=== PATIENT | male | born 1970 | race Caucasian/White ===

== ENCOUNTER 2016-11-03 18:21 | Inpatient (IN) | payer MEDICAID, OTHER ==
[~2016-11-03] VITALS: Ht 172.7 cm; Wt 94.1 kg
[2016-11-03 19:14] LABS: BASOPHILS % (AUTO) 0.4 % (0.0-2.0); EOSINOPHILS % (AUTO) 0.7 % (1.0-6.0); HEMATOCRIT 50.5 % (41-53); HEMOGLOBIN 16.3 g/dL (13.5-17.5); LYMPHOCYTES # (AUTO) 2.9 K/uL (1.0-4.8); LYMPHOCYTES % (AUTO) 38.4 % (22.0-44.0); MEAN CORPUSCULAR HEMOGLOBIN 29.3 pg (26.0-34.0); MEAN CORPUSCULAR HGB CONC 32.2 G/dL (31.0-37.0); MEAN CORPUSCULAR VOLUME 91 fL (80-100); MONOCYTES # (AUTO) 0.6 K/uL (0.1-1.0); MONOCYTES % (AUTO) 7.4 % (2.0-9.0); NEUTROPHILS % (AUTO) 53.1 % (40.0-70.0); PLATELET COUNT (AUTO) 179 K/uL (150-450); RED BLOOD CELL COUNT(AUTO) 5.56 MIL/uL (4.50-5.90); RED CELL DISTRIBUTION WIDTH 13.3 % (11.5-14.5); WHITE BLOOD COUNT (AUTO) 7.5 K/uL (4.5-11.0)
[2016-11-03 19:29] LABS: ANION GAP 7 mmol/L (8-16); CALCIUM, TOTAL 9.4 mg/dL (8.8-10.5); CARBON DIOXIDE 33 mmol/L (22-29); CHLORIDE 98 mmol/L (98-107); CREATININE 1.16 mg/dL (0.60-1.30); GLOMERULAR FILTR. RATE CALC > 60 mL/min (>60); POTASSIUM 3.7 mmol/L (3.5-5.1); SODIUM SERUM 138 mmol/L (136-145); UREA NITROGEN, BLOOD 14 mg/dL (7-18)
[2016-11-03 19:34] LABS: ALANINE AMINOTRANSFERASE 115 U/L (12-78); ALBUMIN 4.3 g/dL (3.4-5.0); ASPARTATE AMINOTRANSFERASE 43 U/L (15-37); BILIRUBIN,TOTAL 0.7 mg/dL (0.1-1.0); TOTAL PROTEIN, SERUM 8.4 g/dL (6.4-8.2)
[2016-11-03] MEDS ORDERED: ZOLPIDEM TARTRATE 10 MG TABLET PO PRN (20:30)
[2016-11-03] MEDS ORDERED: HALOPERIDOL 5 MG TABLET PO PRN (20:30)
[2016-11-03] MEDS ORDERED: LORazepam 2 MG TABLET PO ONE (20:30)
[2016-11-03] MEDS ORDERED: DiphenhydrAMINE HCL 25 MG CAPSULE PO ONE (20:30)
[2016-11-03] MEDS ORDERED: HALOPERIDOL 5 MG TABLET PO ONE (20:30)
[2016-11-03 21:19] VITALS: BP 129/70
[2016-11-04 07:08] VITALS: BP 128/76
[2016-11-04 07:39] VITALS: BP 114/72
[2016-11-04] MEDS ORDERED: BENZOCAINE/MENTHOL LOZENGE MM PRN (09:00)
[2016-11-04] MEDS ORDERED: PETROLATUM,WHITE 71 GM JELLY TP PRN (09:00)
[2016-11-04] MEDS ORDERED: ONDANSETRON HCL 4 MG TABLET PO PRN (09:00)
[2016-11-04] MEDS ORDERED: BACITRACIN 28.4 GM OINTMENT TP PRN (09:00)
[2016-11-04] MEDS ORDERED: ALBUTEROL SULFATE HFA 90 MCG/PUFF 8 GM INHALER IH PRN (09:00)
[2016-11-04] MEDS ORDERED: MAG HYDROX/AL HYDROX/SIMETH ES 30 ML SUSPENSION UDCUP PO PRN (09:00)
[2016-11-04] MEDS ORDERED: ACETAMINOPHEN 325 MG TABLET PO PRN (09:00)
[2016-11-04] MEDS ORDERED: CloNIDine HCL 0.1 MG TABLET PO PRN (09:00)
[2016-11-04] MEDS ORDERED: IBUPROFEN 600 MG TABLET PO PRN (09:00)
[2016-11-04] MEDS ORDERED: LOPERAMIDE HCL 2 MG CAPSULE PO PRN (09:00)
[2016-11-04] MEDS ORDERED: MAGNESIUM HYDROXIDE SUSPENSION 30 ML UDCUP PO PRN (09:00)
[2016-11-04] MEDS: LORazepam 2 MG TABLET PO PRN ×2 (09:07→20:10)
[2016-11-04 11:52] VITALS: BP 113/98
[2016-11-04 16:20] VITALS: BP 118/89
[2016-11-04] MEDS: RisperiDONE 1 MG TABLET PO SCH (20:10)
[2016-11-05 08:25] VITALS: BP 111/83
[2016-11-05 08:58] LABS: CHOL/HDL RATIO 6.4 (4.2-7.3); THYROID STIMULATING HORMONE 2.69 uIU/mL (0.36-3.74)
[2016-11-05] MEDS: RisperiDONE 1 MG TABLET PO SCH (09:33)
[2016-11-05] MEDS ORDERED: RISP1 PO (13:38)
[2016-11-06 13:08] LABS: HEPATITIS Bs ANTIGEN SCREEN P Negative (Negative); HEPATITIS C AB SCREEN <0.1 s/co ratio (0.0-0.9)
== END 2016-11-05 16:10 | disposition home or self-care (01) | DRG 750 ==
LOC: EMS 18:23 → EEVIPCON 18:23 → AHU 20:20 → UNDOADMIN 20:24 → B3A 11-04 15:14
DX: F20.0 Paranoid schizophrenia (principal); R74.0 Nonspecific elevation of levels of transaminase and lactic acid dehydrogenase [LDH]; R45.851 Suicidal ideations; K59.00 Constipation, unspecified; Z59.0 Homelessness; R79.89 Other specified abnormal findings of blood chemistry
CPT/HCPCS: 80074; 82306; 84443; 99285; G0480